=== PATIENT | female | born 1975 | race African-American/Black ===

== ENCOUNTER 2019-03-29 02:51 | Emergency (ER) | payer OTHER ==
[~2019-03-29] VITALS: Ht 162.6 cm; Wt 54.4 kg
--- NOTE | 2019-03-29 03:10 | NUR ---
ED Nurse Note: Patient PARVEEN RA 34 from home c/o dizziness for 1 hour. Patient unable to answer questions. Per EMS patient was answering questions and following commands on scene. Pt's states Pt is cancer Pt, but she refused the treatment. Pt is AO x 1 times by name, VSS, on room air no distress. VIKAS seen Pt at bedside.
--- NOTE | 2019-03-29 03:13 | Emergency Room Report ---
History of Present Illness General Chief Complaint: Dizziness Source: Patient, Family Member Present Illness HPI This is a 43-year-old [place] female who presents with chief complaint of dizziness and altered mental status. She has a history of colon cancer that was diagnosed in October. Per her , it spread to the lymph nodes and maybe lungs. She is not getting chemotherapy or radiation or surgery. She also has history of HIV. She has had a complete body scan a few days ago. Scheduled for follow-up next week. She has been getting IV vitamin C. She presents with chief complaint of altered mental status and dizziness with vomiting. Onset tonight. Complaining of room spinning around. Now has been said that she is not as alert. also shaking. Denies any focal deficit. Vomiting is nonbloody and nonbilious. No diarrhea. No fever or chills. No other complaints. Allergies: Coded Allergies: No Known Allergies (Unverified , 03/29/19) Patient History Past Medical History: see triage record, old chart reviewed Past Surgical History: other Pertinent Family History: none Social History: Denies: smoking Last Menstrual Period: UNK Now: No - unk Immunizations: other Reviewed Nursing Documentation: PMH: Agreed; PSxH: Agreed Nursing Documentation-PMH Past Medical History: No History, Except For Hx Cancer: Yes - lymphoma Review of Systems Constitutional: Reports: malaise, weakness Eye: Denies: eye pain, blurred vision ENT: Denies: ear pain, nose congestion, throat swelling Respiratory: Denies: cough, shortness of breath Cardiovascular: Denies: chest pain, palpitations Gastrointestinal: Denies: abdominal pain, diarrhea, nausea, vomiting Musculoskeletal: Denies: back pain, joint pain Skin: Denies: rash Neurological: Reports: dizziness; Denies: headache, numbness Endocrine: Denies: increased thirst, increased urine Hematologic/Lymphatic: Denies: easy bruising All Other Systems: negative except mentioned in HPI Physical Exam Vital Signs Date Time Temp Pulse Resp B/P (MAP) Pulse Ox O2 Delivery O2 Flow Rate FiO2 03/29/19 02:55 74 16 112/68 100 Room Air vitals normal Sp02 EP Interpretation: reviewed, normal General Appearance: cachetic, other - Confused Head: normocephalic, atraumatic Eyes: bilateral eye PERRL, bilateral eye EOMI ENT: hearing grossly normal, dry mucus membranes Neck: full range of motion, supple, no meningismus Respiratory: chest non-tender, lungs clear, normal breath sounds Cardiovascular #1: regular rate, rhythm, no murmur Gastrointestinal: normal bowel sounds, non tender, no mass, no organomegaly, no bruit, non-distended Musculoskeletal: back normal, normal range of motion Neurologic: grossly normal Psychiatric: depressed affect Skin: warm/dry Medical Decision Making Diagnostic Impression: Primary Impression: Dizziness of unknown cause Additional Impressions: Weakness generalized Anemia, chronic disease ER Course Patient with generalized weakness and dizziness. This may be secondary to dehydration and/or her cancer. No focal deficit. She had recent CT of her body including her head. Days ago. I see no need for repeat. She felt better now. We'll discharge home. EKG Diagnostic Results Rate: normal Rhythm: NSR ST Segments: no acute changes Rhythm Strip Diag. Results EP Interpretation: yes Rate: 94 Rhythm: NSR, no PVC's, no ectopy Last Vital Signs Date Time Temp Pulse Resp B/P (MAP) Pulse Ox O2 Delivery O2 Flow Rate FiO2 03/29/19 02:55 74 16 112/68 100 Room Air Status: improved Disposition: HOME, SELF-CARE Condition: Stable Scripts Unable to Obtain Active Prescriptions or Reported Meds Additional Instructions: Follow-up with your oncologist as scheduled. Increase fluids. Return if worse. Matty Wick MD Mar 29, 2019 03:13
[2019-03-29 03:16] LABS: HEMATOCRIT 25.5 % (37.0-47.0); HEMOGLOBIN 8.3 G/DL (12.0-16.0); MEAN CORPUSCULAR VOLUME 80 FL (80-99); PLATELET COUNT 212 K/UL (150-450); RED BLOOD COUNT 3.19 M/UL (4.20-5.40); RED CELL DISTRIBUTION WIDTH 17.3 % (11.6-14.8); WHITE BLOOD COUNT 3.1 K/UL (4.8-10.8)
[2019-03-29 03:19] VITALS: BP 120/72
--- NOTE | 2019-03-29 03:20 | NUR ---
ED Nurse Note: Orine and blood sample sent to lab.
--- NOTE | 2019-03-29 03:26 | NUR ---
ED Nurse Note: Pt went to CT scan.
[2019-03-29 03:42] LABS: ANION GAP 9 mmol/L (5-15); BLOOD UREA NITROGEN 13 mg/dL (7-18); CALCIUM 8.2 MG/DL (8.5-10.1); CARBON DIOXIDE 25 MMOL/L (21-32); CHLORIDE 102 MMOL/L (98-107); CREATININE 0.6 MG/DL (0.55-1.30); POTASSIUM 3.5 MMOL/L (3.5-5.1); SODIUM 136 MMOL/L (136-145)
[2019-03-29 03:47] LABS: ALANINE AMINOTRANSFERASE 15 U/L (12-78); ALBUMIN 2.4 G/DL (3.4-5.0); ALBUMIN/GLOBULIN RATIO 0.4 (1.0-2.7); ALKALINE PHOSPHATASE 73 U/L (46-116); ASPARTATE AMINO TRANSFERASE 26 U/L (15-37); BILIRUBIN,TOTAL 0.2 MG/DL (0.2-1.0)
[2019-03-29 04:04] LABS: APPEARANCE,URINE CLEAR; BILIRUBIN, URINE NEGATIVE (NEGATIVE); COLOR,URINE PALE YELLOW; GLUCOSE, URINE (UA) NEGATIVE (NEGATIVE); KETONES,URINE 1+ (NEGATIVE); LEUKOCYTE ESTERASE ,URINE NEGATIVE (NEGATIVE); NITRITE,URINE NEGATIVE (NEGATIVE); PH,URINE 6.5 (4.5-8.0); PROTEIN,URINE NEGATIVE (NEGATIVE); UROBILINOGEN,URINE NORMAL MG/DL (0.0-1.0)
[2019-03-29] MEDS ORDERED: LORazepam Inj 2mg/ml 1ml IV ONE (04:15)
[2019-03-29 04:53] VITALS: BP 108/71
[2019-03-29 05:24] VITALS: BP 108/71
--- NOTE | 2019-03-29 05:26 | NUR ---
ER DISCHARGE NOTE: Patient is cleared to be discharged per ERMD, pt is aox1, on room air, with stable vital signs. pt's was given dc and prescription instructions, was able to verbalize understanding, pt id band and iv site removed without complications. pt out of unit with wheel chair took all belongings.
--- NOTE | 2019-04-01 00:56 | Cardiology Report ---
APPROVED REPORT EKG Measurement Heart [id number] Normal sinus rhythm Possible Lateral infarct, age undetermined Abnormal ECG
== END 2019-03-29 05:28 | disposition home or self-care (01) ==
LOC: EDBD 02:51 → EMR 03:05
DX: R42 Dizziness and giddiness (principal); R53.1 Weakness; D64.9 Anemia, unspecified; Z85.72 Personal history of non-Hodgkin lymphomas; Z85.038 Personal history of other malignant neoplasm of large intestine; B20 Human immunodeficiency virus [HIV] disease; R41.82 Altered mental status, unspecified; E86.0 Dehydration
CPT/HCPCS: 36415; 80053; 81001; 81025; 84484; 85007; 85025; 93005; 96361; 96374; 99284